=== PATIENT | female | born 1990 | race Hispanic/Latino ===

== ENCOUNTER → 2017-05-30 | Outpatient (CLI) | payer OTHER ==
[~2017-05-30] MED LIST: ACET50TA PO; CIPR-249 PO; IBUP60TA PO; MIREIUD IU; NUPE1OIN2 TOP; PRENTAB20 PO
--- NOTE | 2017-05-30 11:40 | REP ---
SINUSES, COMPLETE: 05/30/2017. Clinical history: Frontal and posterior headaches. Findings: Five views are provided. Thayer and Water's views show the orbital floors intact. Maxillary sinuses show no air-fluid level or mucosal thickening. Septum is midline. The frontal, sphenoid and ethmoid sinuses are grossly intact. Lateral views also show no evidence of mucosal thickening in the maxillary sinuses. Nasopharyngeal airway, oropharynx were intact. Visualized bones intact. Medial orbital sidhu and the orbital struts intact. Impression: 1. There is no plain film evidence of acute or chronic sinusitis. No bony destructive lesion or other acute finding. Septum midline. Signed by Luca Guerra MD 05/31/2017 07:18 P
== END ==
LOC: M LRY 10:48
PROVIDERS: ATTEND Nurse Practitioner Family
DX: R51 Headache (principal)
CPT/HCPCS: 70220; G0463

== ENCOUNTER 2017-06-02 18:08 | Emergency (ER) | payer OTHER ==
[~2017-06-02] VITALS: Ht 162.6 cm; Wt 55.0 kg
[~2017-06-02 18:08] MED LIST changes: -CIPR-249 PO; -MIREIUD IU
[2017-06-02] MEDS ORDERED: NS 1,000 ML IV ONE (20:00)
[2017-06-02] MEDS ORDERED: PHENAZOPYRIDINE 100 MG TAB PO ONE (20:00)
[2017-06-02 20:16] LABS: BASO % 0.3 % (0.0-1.0); IMMATURE GRANULOCYTE % 0.3 % (0-0); LYMPH # 1.5 10^3/uL (1.5-6.5); LYMPH % 13.5 % (24.0-44.0); MEAN CORPUSCULAR HEMOGLOBIN 30.2 pg (27.0-33.0); MEAN CORPUSCULAR HGB CONC 34.6 g/dl (32.0-36.5); MEAN CORPUSCULAR VOLUME 87.3 fl (80.0-96.0); MONO # 0.5 10^3/uL (0.0-0.8); MONO % 4.3 % (0.0-5.0); NEUTROPHILS # 8.9 10^3/uL (1.8-7.7); NEUTROPHILS % 81.6 % (36.0-66.0); PLATELET COUNT, AUTOMATED 247 10^3/uL (150-450); WHITE BLOOD COUNT 10.9 10^3/uL (4.0-10.0)
[2017-06-02 20:50] LABS: ALBUMIN 4.2 GM/DL (3.2-5.2); ALBUMIN/GLOBULIN RATIO 0.91 (1.00-1.93); ALKALINE PHOSPHATASE 83 U/L (45-117); ALT/SGPT 12 U/L (12-78); ANION GAP 12 MEQ/L (8-16); AST/SGOT 6 U/L (7-37); BILIRUBIN,TOTAL 0.9 MG/DL (0.2-1.0); BLOOD UREA NITROGEN 12 MG/DL (7-18); CALCIUM LEVEL 9.5 MG/DL (8.5-10.1); CARBON DIOXIDE LEVEL 23 MEQ/L (21-32); CHLORIDE LEVEL 105 MEQ/L (98-107); CREATININE FOR GFR 0.65 MG/DL (0.55-1.02); GLOMERULAR FILTRATION RATE > 60.0 (>60); GLUCOSE, FASTING 104 MG/DL (70-105); POTASSIUM SERUM 3.9 MEQ/L (3.5-5.1); SODIUM LEVEL 140 MEQ/L (136-145); TOTAL PROTEIN 8.8 GM/DL (6.4-8.2)
[2017-06-02] MEDS ORDERED: CEFTRIAXONE SOD 1 GM in APPROPRIATE DILUENT 1 EA IV ONE (22:30)
[2017-06-02 23:02] LABS: MUCUS, URINE RFX SMALL (NEGATIVE); SPECIFIC GRAVITY UR AUTO RFX 1.021 (1.002-1.035); SQUAM EPITHELIAL CELL UR AURFX 0 /HPF (0-6)
[2017-06-02] MEDS ORDERED: CIPROFLOXACIN 500 MG TAB PO ONE (23:30)
[2017-06-02] MEDS ORDERED: KETOROLAC 30 MG/ML VIAL (J1885) IV ONE (23:30)
[2017-06-02] MEDS ORDERED: CIPR-249 PO (23:42)
[2017-06-02 23:52] VITALS: BP 103/65
[2017-06-03] MEDS ORDERED: CIPR-249 PO ×2 (22:51→22:52)
== END 2017-06-02 23:54 | disposition home or self-care (01) ==
LOC: M ED 18:08
DX: N30.00 Acute cystitis without hematuria (principal); R51 Headache; Z79.3 Long term (current) use of hormonal contraceptives
CPT/HCPCS: 36415; 51701; 80053; 81001; 85025; 87086; 96361; 96365; 96375; 99284; J1885

== ENCOUNTER 2017-06-03 13:54 | Emergency (ER) | payer OTHER ==
[~2017-06-03] VITALS: Ht 162.6 cm; Wt 55.0 kg
[~2017-06-03 13:54] MED LIST changes: +CIPR-249 PO
[2017-06-03 14:59] LABS: MICROSCOPIC INDICATED? MAN YES (NO)
[2017-06-03 15:11] LABS: BACTERIA, URINE SMALL AMOUNT
[2017-06-03] MEDS ORDERED: NS 1,000 ML IV ONE (15:15)
[2017-06-03 15:16] LABS: HYALINE CAST, URINE NONE SEEN /lpf (0-1); MICROSCOPIC EXAM PERFORMED; SQUAMOUS EPITHELIAL CELL URINE SMALL AMOUNT /hpf (SMALL AMT)
[2017-06-03 15:50] LABS: BASO % 0.3 % (0.0-1.0); EOS # 0.1 10^3/uL (0.0-0.50); EOS % 0.7 % (0.0-3.0); IMMATURE GRANULOCYTE % 0.3 % (0-0); LYMPH # 2.1 10^3/uL (1.5-6.5); LYMPH % 31.5 % (24.0-44.0); MEAN CORPUSCULAR HEMOGLOBIN 30.1 pg (27.0-33.0); MEAN CORPUSCULAR HGB CONC 34.3 g/dl (32.0-36.5); MEAN CORPUSCULAR VOLUME 87.8 fl (80.0-96.0); MONO # 0.3 10^3/uL (0.0-0.8); NEUTROPHILS # 4.2 10^3/uL (1.8-7.7); NEUTROPHILS % 62.2 % (36.0-66.0); PLATELET COUNT, AUTOMATED 256 10^3/uL (150-450); RED CELL DISTRIBUTION WIDTH 12.2 % (11.5-14.5); WHITE BLOOD COUNT 6.7 10^3/uL (4.0-10.0)
[2017-06-03 15:51] LABS: CONTROL LINE UCG INT CTR LINE PRESENT
[2017-06-03 16:10] LABS: ANION GAP 10 MEQ/L (8-16); BLOOD UREA NITROGEN 13 MG/DL (7-18); CALCIUM LEVEL 9.4 MG/DL (8.5-10.1); CARBON DIOXIDE LEVEL 24 MEQ/L (21-32); CHLORIDE LEVEL 106 MEQ/L (98-107); CREATININE FOR GFR 0.64 MG/DL (0.55-1.02); GLOMERULAR FILTRATION RATE > 60.0 (>60); GLUCOSE, FASTING 78 MG/DL (70-105); POTASSIUM SERUM 3.4 MEQ/L (3.5-5.1); SODIUM LEVEL 140 MEQ/L (136-145)
--- NOTE | 2017-06-03 17:32 | REP ---
MRI LUMBAR SPINE WITHOUT CONTRAST: HISTORY: Back pain. A rudimentary disc is present at the S1-2 level. Decreased signal intensity on T2-weighted images is present in the L5-S1 intervertebral discs. This represents disc degeneration. There is no disc bulge or herniation at the L1-2 through L4-5 levels. The nerves exit the neural foramina without compression. A diffuse disc bulge and small right paracentral disc protrusion are present at the L5-S1 level. There is minimal compression of the thecal sac and right S1 nerve as it exits the thecal sac. The L5 nerves exit the neural foramina without compression. The conus medullaris is normal in appearance terminating at the level of the T12-L1 intervertebral disc. Normal signal intensity is present in the lumbar vertebral bodies. IMPRESSION: Diffuse disc bulge and small right paracentral disc protrusion at the L5-S1 level with minimal compression of the thecal sac and right S1 nerve as it exits the thecal sac. Unreviewed
--- NOTE | 2017-06-03 20:20 | REPUSA ---
MRI cervical spine without contrast Clinical statement: neuropathy, urinary retention. Technique: Multiecho multiplanar MRI images of the cervical spine were obtained without administratio n of contrast. No comparison is available. Findings: The cervical vertebral bodies are in satisfactory position and alignment. No fractures or d islocations are demonstrated. Normal heterogeneous bone marrow signal is noted. No osseous tumors are seen. The visualized portions of the posterior fossa are unremarkable. The cervical cranial junction is intact. The intervertebral disc spaces and heights are well-maintained. The facet joints are inta ct without evidence of subluxation. The cervical spinal cord demonstrates normal signal and contour. The surrounding soft tissues are within normal limits. At the cervical vertebral levels, there is no evidence of disc herniation or protrusion. There is no central canal stenosis. The neural foramina are patent bilaterally. Impression: Unremarkable MRI examination of the cervical spine.
--- NOTE | 2017-06-03 20:40 | REPUSA ---
MRI of the thoracic spine without contrast Clinical statement: neuropathy. Technique: Multiecho multiplanar MRI images of the thoracic spine were obtained without administratio n of contrast. No comparison is available. Findings: The thoracic vertebral bodies are in satisfactory position and alignment. No fractures or d islocations are demonstrated. The bone marrow appears unremarkable. Intervertebral disc spaces are we ll maintained. There is no evidence of disc herniation or protrusion. The neural foramen are patent. The facet joints are intact. The surrounding soft tissues are within normal limits. Impression: Unremarkable MRI examination of the thoracic spine.
[2017-06-03] MEDS ORDERED: CIPR-249 PO ×2 (22:51→22:52)
[2017-06-03] MEDS ORDERED: CIPROFLOXACIN 500 MG TAB PO ONE (23:00)
[2017-06-03 23:03] VITALS: BP 113/69
--- NOTE | 2017-06-04 12:53 | REPUSA ---
MRI of the brain. Clinical history: neuropathy. Technique: Multiecho multiplanar MRI images of the brain were obtained without administration of cont rast. Diffusion weighted images with ADC mapping was also obtained. Findings: The ventricles and sulci are symmetric bilaterally. The brain parenchyma demonstrates uniform and nor mal signal on all sequences. There is no midline shift, mass effect, or extra-axial fluid collection. The midline intracranial structures do not demonstrate any gross abnormalities. The cervical cranial junction is intact. The orbits are unremarkable. The visualized paranasal sinuses and mastoid air ce lls are clear. The osseous structures and superficial soft tissues are unremarkable. The vascular str uctures demonstrate appropriate flow voids. Impression: Normal MRI of the Brain.
[2017-06-07 00:10] LABS: Lyme Disease IgG/IgM Antibodie <0.91 ISR (0.00-0.90); Lyme Disease IgM Ab Quantitati <0.80 index (0.00-0.79)
== END 2017-06-03 23:30 | disposition home or self-care (01) ==
LOC: M ED 13:54
DX: R33.9 Retention of urine, unspecified (principal); Z97.5 Presence of (intrauterine) contraceptive device; M51.27 Other intervertebral disc displacement, lumbosacral region

== ENCOUNTER 2017-06-07 15:12 | Emergency (ER) | payer OTHER ==
[~2017-06-07] VITALS: Ht 162.6 cm; Wt 55.0 kg
[2017-06-07] MEDS ORDERED: MIREIUD IU (15:35)
[2017-06-07 21:55] VITALS: BP 116/75
== END 2017-06-07 22:11 | disposition home or self-care (01) ==
LOC: M ED 15:12
DX: R33.9 Retention of urine, unspecified (principal); Z97.5 Presence of (intrauterine) contraceptive device

== ENCOUNTER → 2017-10-11 | Outpatient (CLI) | payer OTHER ==
[~2017-10-11] MED LIST changes: -ACET50TA PO; -CIPR-249 PO; -IBUP60TA PO; +LIDOCAINE 1% SDV INJ 30 ML VIAL As Ordered; +MIDAZOLAM INJ 2 MG/2 ML VIAL (J2250) As Ordered; -NUPE1OIN2 TOP; -PRENTAB20 PO; +fentaNYL 100 MCG/2 ML INJECTION (J3010) As Ordered
[2017-10-11 16:42] LABS: CSF TUBE# GLU TUBE 1; CSF TUBE# TP TUBE 1; GLUCOSE CSF 43 MG/DL (40-75); TOTAL PROTEIN,CSF 29.1 MG/DL (15-45)
[2017-10-11 17:23] LABS: CSF RBC < 2 10^3/uL (<2)
[2017-10-11 17:25] LABS: APPEARANCE, CSF CLEAR (CLEAR); COLOR, CSF COLORLESS (COLORLESS); CSF DIFF IF INDICATED? NO (NO); CSF TUBE# CELL CNT TUBE 3; CSF WBC 1 /uL (0-10)
[2017-10-14 14:19] LABS: IMMUNOGLOBULIN G CSF 2.4 mg/dL (0.0-8.6)
== END ==
LOC: M PAIN 12:30
DX: G35 Multiple sclerosis (principal)
CPT/HCPCS: J2250